=== PATIENT | female | born 1960 | race Caucasian/White ===

== ENCOUNTER → 2019-06-30 | Outpatient (CLI) | payer BC ==
--- NOTE | 2019-06-30 11:35 | Diagnostic Imaging Report ---
INDICATION: Bilateral hand pain and swelling. TIME OF EXAM: 11:23 AM FINDINGS: Multiple views bilateral hands were obtained. 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 Metacarpals are intact bilaterally. Phalanges show some generalized degenerative changes involving multiple interphalangeal joints. No fractures are identified. Soft tissues are unremarkable. IMPRESSION: Chronic changes bilaterally. No acute bony abnormality is detected. Dictated by: Dictated on workstation # [id number]
== END ==
LOC: RAD FS 11:19
PROVIDERS: ATTEND Family Medicine
DX: M25.442 Effusion, left hand (principal); M25.441 Effusion, right hand

== ENCOUNTER → 2021-04-23 | Outpatient (CLI) | payer BC ==
[~2021-04-23] VITALS: Ht 172.2 cm; Wt 98.0 kg
[~2021-04-23] MED LIST: ASPI-999 PO; ATOR10TA66 PO; CYCL10TA9 PO; DICL75TA2 PO; PROP1DRO7 OP; TERB25PO MC; ZOLP10TA PO
== END | disposition home or self-care (01) ==
LOC: PREOP 06:20
PROVIDERS: ATTEND Surgery
DX: Z01.818 Encounter for other preprocedural examination (principal)